=== PATIENT | female | born 1935 | race Caucasian/White ===

== ENCOUNTER 2023-11-06 10:54 | Emergency (ER) | payer MEDICARE, OTHER, SELFPAY ==
[2023-11-06 10:57] VITALS: BP 143/62
[2023-11-06 11:09] VITALS: BP 143/59
--- NOTE | 2023-11-06 11:24 | ED.GENMED ---
History of Present Illness
General
Chief Complaint: Flank Pain
Time Seen by Provider: 11/06/23 11:03
Travel History
Have you had any contact with someone who has COVID-19?: No
Do you have any symptoms of coronavirus? Fever > 100 degrees, chills, cough, shortness of breath, sore throat, loss of taste or smell, muscle aches, or headache?: No
History of Present Illness
History of Present Illness:
87-year-old female with history of A-fib on Eliquis, hypertension, hyperlipidemia, insulin-dependent diabetes, and CHF presents to the emergency department for evaluation of left flank pain since early this morning. She does admit to having a fall
onto her left side 4 days ago, denies head strike. She did not have any symptoms until this morning. Pain feels comparable to prior kidney stones. Denies any dysuria or hematuria. No fever, chills, sweats, nausea, or vomiting. She did take her
Eliquis this morning
Past History
Past History
ED Past Medical History: Arrthythmia (Atrial fibrillation), HTN, Hypercholesterolemia, NIDDM and Other (Kidney stones)
ED Past Surgical History: Cardiac and Orthopedic
Patient has exhibited threatening behavior?: No
PSI?: No
Social History
Tobacco: Non-smoker
Alcohol: None
Drug: None
Personal: Single
Living: alone
Employment: Retired
Family History
Family History: Negative Diabetes, Hypertension or CAD
Review of Systems
Review of Systems
Allergies reviewed?: Yes
All Other Systems: ROS reviewed and negative except as documented in HPI and ROS
Phy Exam
Physical Exam
Physical Exam:
GEN: Well appearing, NAD, WDWN
Eyes: PERRLA, EOMs intact, no scleral icterus
HENT: NCAT, oral mucosa moist
Lungs: CTAB, no wheezes, rales, rhonchi, normal chest wall excursion
Cardiac: RRR, no M/R/G, no peripheral edema. Radial pulses 2+ bilat
Abdomen: S, NT, ND, NABS, no masses or hepatosplenomegaly, no CVA tenderness bilateral, no abdominal or flank ecchymoses
Neuro: AO x 3
MSK: No gross deformity or ecchymosis. No edema. No digital clubbing
Skin: No rashes, petechiae. Normal color, no pallor or jaundice.
Psych: Calm, cooperative, proper hygiene
Course
Orders/Labs/Results
Orders:
Orders
11/06/23 11:24
CT Abd/pel Without Iv Or Oral Urgent
Comment:
Reason For Exam: L flank pain
11/06/23 11:39
Basic Metabolic Panel Urgent
Complete Blood Count/With Diff Urgent
11/06/23 13:00
Acetaminophen [Tylenol] 1,000 mg PO NOW STA
11/06/23 14:03
Urinalysis Reflex To Culture Urgent
Date Specimen was Collected: 11/06/23
Time Specimen was Collected: 14:02
Urine Microscopic Reflex Cult Urgent
Abnormal Lab Results
11/06/23 11/06/23
11:39 14:03
RBC 3.84 L 10^6/uL
(4.20-5.40)
MCH 33.3 H pg
(27.0-31.0)
MPV 12.8 H fL
(7.4-10.4)
Abs Immat Gran (auto) 0.1 H 10^3/uL
(0-0.05)
Absolute Lymphs (auto) 0.8 L 10^3/uL
(1.2-3.4)
Absolute Monos (auto) 1.0 H 10^3/uL
(0.1-0.6)
Immature Gran % 0.7 H %
(0-0.5)
Neutrophils % 76.4 H %
(42.2-75.2)
Lymphocytes % 9.9 L %
(20.5-51.1)
Monocytes % 12.1 H %
(1.7-9.3)
Chloride 108 H mmol/L
(98-107)
BUN 55 H mg/dl
(7-17)
Creatinine 1.5 H mg/dL
(0.6-1.0)
Glucose 167 H mg/dl
(70-99)
Urine Ketones Trace A
(Negative)
Ur Occult Blood Reflex 4+ A
(Negative)
Urine RBC 7-10 A /HPF
(0-2)
11/06/23 11:39
11/06/23 11:39
Vital Signs
Initial and Last Documented VS:
Initial Vital Signs
Temp Pulse Resp BP Pulse Ox
97.9 F 71 18 143/62 98
11/06/23 10:57 11/06/23 10:57 11/06/23 10:57 11/06/23 10:57 11/06/23 10:57
Last Documented Vital Signs
Temp Pulse Resp BP Pulse Ox
97.9 F 71 18 152/60 99
11/06/23 10:57 11/06/23 10:57 11/06/23 10:57 11/06/23 13:15 11/06/23 13:45
MDM/Problems Addressed
MDM/Problems Addressed:
87-year-old female presents with left flank pain, she did have a traumatic fall several days ago with no evidence for ecchymosis on the back, flank, or abdomen. Her labs are unremarkable and urinalysis is bland. Imaging was obtained showing no
evidence for ureterolithiasis. This may be a musculoskeletal source or could be pain in the setting of her constipation. Ultimately did not feel it was necessary to perform an IV contrast study given that the patient is on Eliquis to evaluate for
trauma in the setting of lack of ecchymosis and lack of a significant peritoneal abdominal exam.
*Critical Care Note
Total Time (30-74mins, 75-104mins- exclusive of procedures): Not Applicable
ED Attending Note
-
Portions of this chart may have been created with voice recognition software.� Occasional wrong word or��sound alike� substitutions may have occurred due to the inherent limitations of voice recognition software.
Discharge Plan
Departure
Patient Disposition: Home (Routine Discharge)
Date of Disposition: 11/06/23
Time of Disposition: 13:27
Patient with high blood pressure during this ER visit?: No
Discharge Problem:
Acute left flank pain, Acute constipation
Instructions: Flank Pain (DC)
Prescriptions:
No Action
Eliquis 2.5 MG tablet
2.5 mg PO BID Qty: 60 3RF
Hold Instructions: Resume on 04/10/23.
pravastatin 40 MG tablet
40 mg PO NOON
levothyroxine 50 MCG tablet
50 mcg PO DAILY@0700
insulin glargine [Basaglar KwikPen U-100 Insulin] 100 UNIT/ML insulin pen
24 unit SQ DAILY
Patient Comments:
13 U
metoprolol succinate 50 mg Capsule,Sprinkle,Er 24hr
50 mg PO BID
amiodarone 100 mg Tablet
100 mg PO TUSA
Januvia 25 mg Tablet
25 mg PO DAILY
hydralazine 25 mg Tablet
25 mg PO BID Qty: 0 0RF
Rx Instructions:
HOLD SYSTOLIC BLOOD PRESSURE <135
nifedipine 30 mg Tablet Extended Release
30 mg PO DAILY Qty: 0 0RF
Rx Instructions:
HOLD SYSTOLIC BLOODPRESSURE <130 IF TAKING HYDROCODONE/VICODIN
tramadol 50 mg tablet
25 mg PO Q6H PRN (Reason: moderate-severe pain) Qty: 20 0RF
Rx Instructions:
Dx Orthopedic surgery
Ongoing therapy
post-op
acetaminophen [Tylenol Extra Strength] 500 MG tablet
1,000 mg PO TID Qty: 0 0RF
chlorthalidone 25 mg tablet
25 mg PO DAILY
Referrals:
Benjamin Zavala, DO [Family Provider] -
Activity Restrictions/Additional Instructions:
Take one capful of miralax daily until constipation improves
Tylenol for pain
You incidentally were noted to have a 12mm R kidney stone however this is not obstructing urine and is not causing your pain
Interventions
Interventions:
*Risk Screen - Suicide Last Done: 11/06/23 10:57
*General Assessment Last Done: 11/06/23 10:57
*Neglect/Abuse Screening Last Done: 11/06/23 10:57
ED- Fall Risk Assessment Last Done: 11/06/23 11:25
*ED COVID-19 Vaccine History Last Done: 11/06/23 10:57
*Nursing Disposition Last Done: 11/06/23 14:05
NL-Uhgrpc-Bglzcfaprt Assessment Last Done: 11/06/23 11:25
ED-Female Genitourinary Assessment Last Done: 11/06/23 11:25
Discharge Date and Time
Discharge Date/Time: 11/06/23 14:05
[2023-11-06 11:53] LABS: % Basophils 0.2 % (0-2); % Eosinophils 0.7 % (0-6); % Immature Granulocytes 0.7 % (0-0.5); % Lymphocytes 9.9 % (20.5-51.1); % Monocytes 12.1 % (1.7-9.3); % Neutrophils 76.4 % (42.2-75.2); Absolute Eosinophils 0.1 10^3/uL (0-0.7); Absolute Immature Granulocytes 0.1 10^3/uL (0-0.05); Absolute Lymphocytes 0.8 10^3/uL (1.2-3.4); Absolute Neutrophils 6.3 10^3/uL (1.4-6.5); Hematocrit 37.8 % (37.0-47.0); Hemoglobin 12.8 g/dL (12.0-16.0); Mean Corp Hgb Conc. 33.9 g/dL (33.0-37.0); Mean Corpuscular Hgb 33.3 pg (27.0-31.0); Mean Corpuscular Volume 98.4 fL (81.0-99.0); Mean Platelet Volume 12.8 fL (7.4-10.4); Nucleated Red Blood Cells % 0 %; Platelet Count 181 10^3/uL (130-400); Red Blood Cell Count 3.84 10^6/uL (4.20-5.40); Red Cell Dist. Width 13.9 % (11.5-14.5); White Blood Cell Count 8.3 10^3/uL (4.8-10.8)
[2023-11-06 12:06] LABS: Blood Urea Nitrogen 55 mg/dl (7-17); Calcium 8.8 mg/dl (8.4-10.2); Carbon Dioxide 23 mmol/L (22-30); Chloride 108 mmol/L (98-107); Glucose 167 mg/dl (70-99); Potassium 3.7 mmol/L (3.5-5.1); Sodium 139 mmol/L (135-145); eGFR 33.31
[2023-11-06] MEDS: TYLENOL 1000 MG PO (13:13)
[2023-11-06 13:15] VITALS: BP 152/60
[2023-11-06 14:18] LABS: Urine Albumin Negative (Neg - Trace); Urine Bilirubin Negative (Negative); Urine Character Clear (Clear); Urine Color Yellow; Urine Glucose Negative (Negative); Urine Ketone Trace (Negative); Urine Leukocyte Negative (Negative); Urine Nitrite Negative (Negative); Urine Occult Blood 4+ (Negative); Urine Urobilinogen Negative (Neg - 1+); Urine pH 6.5 (5.0-9.0)
[2023-11-06 14:33] LABS: Urine White Cell 0-2 /HPF (0-5)
--- NOTE | 2023-11-06 14:38 | EDRN ---
Discharge instructions given to patient by Campbell Jackson PA-C.
== END 2023-11-06 14:05 | disposition home or self-care (01) ==
LOC: EMR 10:54
PROVIDERS: Physician Assistant; EMERGENCY PHYSICIAN Emergency Medicine; FAMILY PHYSICIAN Family Medicine
DX: R10.9 Unspecified abdominal pain (principal); K59.09 Other constipation; Z79.01 Long term (current) use of anticoagulants; Z87.442 Personal history of urinary calculi
CPT/HCPCS: 99284; 74176; 80048; 81003; 81015; 85025

== ENCOUNTER 2023-11-11 09:02 | Emergency (ER) | payer MEDICARE, OTHER, SELFPAY ==
[2023-11-11 09:16] VITALS: BP 128/54
--- NOTE | 2023-11-11 10:13 | ED.GENMED ---
History of Present Illness
General
Chief Complaint: Back Pain
Source: patient and family (Daughter)
Exam Limitations: none
Time Seen by Provider: 11/11/23 10:07
Nursing documentation reviewed up to this point in time: agreed with
Travel History
Have you had any contact with someone who has COVID-19?: No
Do you have any symptoms of coronavirus? Fever > 100 degrees, chills, cough, shortness of breath, sore throat, loss of taste or smell, muscle aches, or headache?: No
History of Present Illness
History of Present Illness:
The patient is a pleasant 88-year-old female with a past medical history of high blood pressure, and A-fib on Eliquis, who presents with persistent severe low back pain. Patient reports that less than 2 weeks ago she fell outside on her front lawn.
Patient reports that due to her legs being twisted, she had difficulty getting up and was assisted by a forestry workers. Patient reports that that day she noticed some pain but was able to walk. She reports she did not hit her head. Patient
reports that several days after the fall, she noticed worsening low back pain and was evaluated in the emergency department 5 days ago. Patient underwent a plain CAT scan at that time which showed a right-sided kidney stone and constipation. No
acute fracture was seen of her spine or pelvic area. Patient presents back to the emergency department because despite taking Tylenol, she is still having pain across her back that is worse than usual. Her daughter reports that she has an
appointment with an orthopedist this Monday but due to her pain, she wanted her mom to be reevaluated. The patient is currently taking Tylenol but states the Tylenol is not really helping the pain. The patient denies any radiation of the pain into
her buttock area or down her legs. She denies weakness and numbness of the legs. She denies difficulty urinating.
Past History
Past History
ED Past Medical History: Arrthythmia (Atrial fibrillation), HTN, Hypercholesterolemia, NIDDM and Other (Kidney stones)
ED Past Surgical History: Cardiac and Orthopedic
Patient has exhibited threatening behavior?: No
PSI?: No
Social History
Tobacco: Non-smoker
Alcohol: None
Drug: None
Personal: Single
Living: alone
Employment: Retired
Family History
Family History: Negative Diabetes, Hypertension or CAD
Review of Systems
Review of Systems
Allergies reviewed?: Yes
Other source history: family
All Other Systems: ROS reviewed and negative except as documented in HPI and ROS
Constitutional: Reports no symptoms
EENT: Reports no symptoms
Respiratory: Reports no symptoms
Cardiac: Reports no symptoms
ABD/GI: Reports no symptoms
: Reports no symptoms
Musculoskeletal: Reports back pain
Skin: Reports no symptoms
Neurological: Reports no symptoms
Endocrine: Reports no symptoms
Hematologic/Lymphatic: Reports no symptoms
Psychiatric: Reports no symptoms
Phy Exam
Physical Exam
Physical Exam:
Physical Exam
General: no apparent distress, not acutely ill. Atraumatic appearing face and head
Neck: supple. Nontender
Heart: s1/s2 regular rate and rhythm,
Lungs: no acute respiratory distress. clear bilaterally
Abdomen: Soft and nontender throughout. No pulsatile mass. No midline spine tenderness. No ecchymoses of back, hips or pelvis. No CVA tenderness. When patient sits forward, she is able to reproduce paraspinal lumbar back
pain with movement
Neuro: alert and oriented. no focal neurological deficits. 5 out of 5 strength in all extremities. No saddle anesthesia.
Skin: no rash
Psychiatric: well kept. interactive and cooperative
Extremities: no edema. no calf tenderness. negative homans. good distal pulses
Course
Orders/Labs/Results
Orders:
Orders
11/11/23 10:29
Tramadol HCl [Ultram] 75 mg PO NOW STA
Vital Signs
Initial and Last Documented VS:
Initial Vital Signs
Temp Pulse Resp BP Pulse Ox
97.5 F 72 16 128/54 98
11/11/23 09:16 11/11/23 09:16 11/11/23 09:16 11/11/23 09:16 11/11/23 09:16
Last Documented Vital Signs
Temp Pulse Resp BP Pulse Ox
97.5 F 72 16 128/54 98
11/11/23 09:16 11/11/23 09:16 11/11/23 09:16 11/11/23 09:16 11/11/23 09:16
MDM/Problems Addressed
Differential Diagnosis Includes:
Muscle spasm, neuropathic pain, vertebral compression fracture, hematoma
MDM/Problems Addressed:
Patient presents with subacute low back pain
Chronic conditions affecting care:
Spinal surgery, arthritis
Acute Exacerbation and/or Progression of Chronic Illness:
Patient is mildly hypertensive
Acute Exacerbation and/or Progression of Chronic Illness: HTN
*Radiology
Radiology exam reviewed: radiology read reviewed (CT report reviewed from 11/06/2023)
*Pulse Oximetry
Patient hypoxic: no
*EKG
Interpreted by ED Provider?: NA
*Horticultural Therapist Interpretation
Rate: Horticultural Therapist- N/A
*Critical Care Note
Total Time (30-74mins, 75-104mins- exclusive of procedures): Not Applicable
Data Reviewed
Review of Other/Old Records Reveals: Radiology Studies (CT report reviewed from 11/06/2023)
Source: patient and family
Patient Management
Social determinants of health affecting care: Living situation and Strong social support
Discussion with other providers: Radiologist (radiologist reviewed CT from 11/06/23 and confirms no acute fracture and spine or pelvis)
Escalation/DeEscalation of care consider admission/obs:
Patient reports she feels better with the tramadol and is able to better function. She is follow-up with orthopedic doctor this Monday. Given she has no dysuria, fever or nausea it is doubtful it is UTI or pyelonephritis. In addition, patient's
urine was just checked 5 days ago and shows no sign of UTI
ED Attending Note
-
Portions of this chart may have been created with voice recognition software.� Occasional wrong word or��sound alike� substitutions may have occurred due to the inherent limitations of voice recognition software.
Discharge Plan
Departure
Patient Disposition: Home (Routine Discharge)
Date of Disposition: 11/11/23
Time of Disposition: 11:13
Patient with high blood pressure during this ER visit?: Yes
Condition: Good
Covid-19: Not Applicable
Discharge Problem:
Low back pain
Instructions: Low Back Pain (DC), BLOOD PRESSURE
Prescriptions:
New
tramadol 25 mg tablet
75 mg PO Q6H PRN (Reason: Pain) Qty: 20 0RF
No Action
Eliquis 2.5 MG tablet
2.5 mg PO BID Qty: 60 3RF
Hold Instructions: Resume on 04/10/23.
pravastatin 40 MG tablet
40 mg PO NOON
levothyroxine 50 MCG tablet
50 mcg PO DAILY@0700
insulin glargine [Basaglar KwikPen U-100 Insulin] 100 UNIT/ML insulin pen
24 unit SQ DAILY
Patient Comments:
13 U
metoprolol succinate 50 mg Capsule,Sprinkle,Er 24hr
50 mg PO BID
amiodarone 100 mg Tablet
100 mg PO TUSA
Januvia 25 mg Tablet
25 mg PO DAILY
hydralazine 25 mg Tablet
25 mg PO BID Qty: 0 0RF
Rx Instructions:
HOLD SYSTOLIC BLOOD PRESSURE <135
nifedipine 30 mg Tablet Extended Release
30 mg PO DAILY Qty: 0 0RF
Rx Instructions:
HOLD SYSTOLIC BLOODPRESSURE <130 IF TAKING HYDROCODONE/VICODIN
tramadol 50 mg tablet
25 mg PO Q6H PRN (Reason: moderate-severe pain) Qty: 20 0RF
Rx Instructions:
Dx Orthopedic surgery
Ongoing therapy
post-op
acetaminophen [Tylenol Extra Strength] 500 MG tablet
1,000 mg PO TID Qty: 0 0RF
chlorthalidone 25 mg tablet
25 mg PO DAILY
Referrals:
Benjamin Zavala DO [Family Provider] -
Activity Restrictions/Additional Instructions:
Follow-up with orthopedist this Monday as scheduled.
Interventions
Interventions:
*Risk Screen - Suicide Last Done: 11/11/23 09:16
*General Assessment Last Done: 11/11/23 09:16
*Neglect/Abuse Screening Last Done: 11/11/23 09:16
ED- Fall Risk Assessment Last Done: 11/11/23 10:39
*ED COVID-19 Vaccine History Last Done: 11/11/23 10:39
*Nursing Disposition Last Done: 11/11/23 11:27
ED-Musculoskeletal Assessment Last Done: 11/11/23 10:40
Discharge Date and Time
Discharge Date/Time: 11/11/23 11:29
[2023-11-11] MEDS: ULTRAM 75 MG PO (10:36)
[2023-11-11 10:38] VITALS: BMI 19.6
== END 2023-11-11 11:29 | disposition home or self-care (01) ==
LOC: EMR 09:02
PROVIDERS: EMERGENCY PHYSICIAN Emergency Medicine; FAMILY PHYSICIAN Family Medicine
DX: M54.50 Low back pain, unspecified (principal); I10 Essential (primary) hypertension; Z79.01 Long term (current) use of anticoagulants
CPT/HCPCS: 99283

== ENCOUNTER → 2023-11-22 11:10 | Outpatient (REF) | payer MEDICARE, OTHER, SELFPAY | LOC: HWRAD 11:10 | PROVIDERS: ATTENDING PHYSICIAN Physician Assistant Surgical; FAMILY PHYSICIAN Family Medicine | DX: M54.50 Low back pain, unspecified (principal); M43.16 Spondylolisthesis, lumbar region; M48.062 Spinal stenosis, lumbar region with neurogenic claudication | CPT/HCPCS: 72131 ==